=== PATIENT | female | born 1970 | race Two or more races ===

== ENCOUNTER → 2024-04-05 | Outpatient (CLI) | payer MEDICAID, SELFPAY ==
--- NOTE | 2024-04-05 13:00 | XR_ITS ---
Examination: Screening digital mammography, bilateral Computer aided detection 3-D breast Tomosynthesis, bilateral Date and time of exam: April 05, 2024 at 1252 hours Compared to mammograms dating to August 14, 2015 Indication: Screening Technique: Nonmagnified MLO, CC views of the breasts to been obtained, reconstructed from 3-D Tomosynthesis images. R2 computer aided detection program utilized for evaluation of suspicious masses and/or abnormal calcifications. 3-D Tomosynthesis images obtained. Findings: Scattered areas of fibroglandular density. Benign calcifications. No interval suspicious masses 4 mm circumscribed nodule upper outer right breast Impression: BI-RADS Category 3: Probably benign findings Recommend 1 additional 6 month right mammogram follow-up to document stability of 4 mm circumscribed nodule upper outer right breast
== END | disposition home or self-care (01) ==
LOC: CDIM 12:40
PROVIDERS: Referring Provider Physician Assistant Medical; Visit Provider Physician Assistant Medical
DX: Z12.31 Encounter for screening mammogram for malignant neoplasm of breast (principal); R92.333 Mammographic heterogeneous density, bilateral breasts; N63.11 Unspecified lump in the right breast, upper outer quadrant
CPT/HCPCS: 77063; 77067

== ENCOUNTER 2024-09-21 09:30 | Day surgery (SDC) | payer MEDICAID, SELFPAY ==
[2024-09-20 13:12] VITALS: BMI 27.8
[2024-09-21] VITALS (10 sets, daily range): BP systolic 88–143; BP diastolic 56–86; PULSE 57–88; RESP 11–18; TEMP 36.6–36.7; O2SAT 98–100; BMI 26.5
[2024-09-21] MEDS: RINGERS LACTATED 1000 ML 1,000 ML 20 ML IV (11:03)
[2024-09-21] MEDS: fentaNYL CIT INJ 50 mCg/ML AMP 2ML (ASD USE ONLY) IVP (11:03)
[2024-09-21] MEDS: MIDAZOLAM INJ 1 MG/ML VIAL 2 ML (ASD USE ONLY) 2 MG IVP (11:11)
== END 2024-09-21 12:20 | disposition home or self-care (01) ==
PROVIDERS: PCP Physician Assistant; Referring Provider Internal Medicine Gastroenterology; Visit Provider Internal Medicine Gastroenterology
PROC: 0DBE8ZX Excision of Large Intestine, Via Natural or Artificial Opening Endoscopic, Diagnostic (ICD-10-PCS; CPT 45380; principal; 2024-09-21 10:30)
DX: K52.9 Noninfective gastroenteritis and colitis, unspecified (principal); I10 Essential (primary) hypertension; K64.8 Other hemorrhoids; K57.30 Diverticulosis of large intestine without perforation or abscess without bleeding
CPT/HCPCS: 45380; J1200; J2250; J3010; J7120

== ENCOUNTER → 2024-10-13 | Outpatient (CLI) | payer MEDICAID, SELFPAY ==
--- NOTE | 2024-10-13 14:00 | XR_ITS ---
Examination: Diagnostic digital mammography, unilateral, right Computer aided detection 3-D breast Tomosynthesis, unilateral Date and time of exam: 10/13/2024, 1:44 PM Comparisons: September 2018 through March 2024 Indications: Short interval follow-up of a nodule. Technique: Nonmagnified MLO, CC views of the right breast have been obtained, reconstructed from 3-D Tomosynthesis images. R2 computer aided detection program utilized for evaluation of suspicious masses and/or abnormal calcifications. 3-D Tomosynthesis images obtained. Technologist: Findings: There are scattered areas of fibroglandular density. 3 mm oval circumscribed mass persists 9:00. No other suspicious abnormality seen. Impression: 3 mm oval mass 9:00. Further evaluation with ultrasound is recommended. BI-RADS category 0: Incomplete assessment; need additional imaging evaluation
== END | disposition home or self-care (01) ==
PROVIDERS: Referring Provider Physician Assistant Medical; Visit Provider Physician Assistant Medical
DX: N63.15 Unspecified lump in the right breast, overlapping quadrants (principal)
CPT/HCPCS: 77061; 77065; G0279

== ENCOUNTER → 2024-10-27 | Outpatient (CLI) | payer MEDICAID, SELFPAY ==
--- NOTE | 2024-10-27 13:21 | XR_ITS ---
Examination: Breast ultrasound, unilateral, right complete Date and time of exam: October 27, 2024 1226 hours INDICATIONS: Mammogram October 13, 2024 3 mm oval mass 9:00 position right breast Technique: Real-time hummel scale ultrasonographic imaging performed right breast including all 4 quadrants as well as nipple retroareolar and axillary region. Findings: 9:00 hyperechoic nodule 7 x 6 mm 9:00 cyst 3 x 3 mm IMPRESSION: BI-RADS Category 3: Probably benign findings. Recommend 1 additional 6 month right breast sonogram follow-up to document stability of 9:00 nodule described above
== END | disposition home or self-care (01) ==
PROVIDERS: PCP Physician Assistant Medical; Referring Provider Physician Assistant Medical; Visit Provider Physician Assistant Medical
DX: N63.15 Unspecified lump in the right breast, overlapping quadrants (principal)
CPT/HCPCS: 76641